=== PATIENT | female | born 1965 | race Asian ===

== ENCOUNTER 2022-04-26 06:19 | Day surgery (SDC) | payer MEDICAID ==
[~2022-04-26] VITALS: Ht 157.5 cm; Wt 46.7 kg
[2022-04-26] MEDS ORDERED: LIDOCAINE 2% 100 MG/5 ML UJET TP ONE (08:29)
[2022-04-26] MEDS ORDERED: MIDAZOLAM 2 MG/2 ML VIAL ONE (08:29)
[2022-04-26] MEDS ORDERED: fentaNYL citrate 0.05 MG/ML VIAL ONE (08:29)
[2022-04-26] MEDS ORDERED: MIDAZOLAM 2 MG/2 ML VIAL IVP ONE (09:45)
== END 2022-04-26 10:00 | disposition home or self-care (01) ==
LOC: MOR 06:19 → MMU 06:20 → MOR 10:00
PROVIDERS: ATTEND Internal Medicine Gastroenterology
DX: Z12.11 Encounter for screening for malignant neoplasm of colon (principal); R10.13 Epigastric pain; Z79.899 Other long term (current) drug therapy; Z20.822 Contact with and (suspected) exposure to COVID-19
CPT/HCPCS: 36415; 43239; 45378; 81025; 86677; 87426; J2250; J3010